=== PATIENT | female | born 1940 | race Caucasian/White ===

== ENCOUNTER → 2018-12-04 | Outpatient (CLI) | payer MEDICARE ==
[~2018-12-04] MED LIST: AMLODIPINE-OLM1 EAC2; AMOCLA875 PO; ANAS1; ASPI81CH PO; ATOR20 PO; Bactrim Ds Tab1 EACH PO; LATA.005SO; LORA1 PO; MUPI2TO TOP; Norco 5-325 Ta1 EACH PO; Prinivil10 MG PO; RANI150; SERT50 PO; TIMO.5OPSO
== END | disposition home or self-care (01) ==
LOC: LAB EV 13:38 → LAB SHORT 13:38
DX: N39.0 Urinary tract infection, site not specified (principal)
CPT/HCPCS: 87077; 87086; 87186

== ENCOUNTER 2021-11-17 09:08 | Day surgery (SDC) | payer MEDICARE ==
[~2021-11-17] VITALS: Ht 170.2 cm; Wt 75.5 kg
== END 2021-11-17 12:09 | disposition home or self-care (01) ==
LOC: ORSCSDS 09:08
PROVIDERS: Internal Medicine Gastroenterology
PROC: 0DBN8ZX Excision of Sigmoid Colon, Via Natural or Artificial Opening Endoscopic, Diagnostic (ICD-10-PCS; principal; 2021-11-17 10:30)
DX: Z12.11 Encounter for screening for malignant neoplasm of colon (principal); Z86.010 Personal history of colon polyps; D12.5 Benign neoplasm of sigmoid colon; K57.30 Diverticulosis of large intestine without perforation or abscess without bleeding; Z79.82 Long term (current) use of aspirin; Z79.899 Other long term (current) drug therapy
CPT/HCPCS: 88305; J2704; J7120

== ENCOUNTER → 2022-03-03 | Outpatient (CLI) | payer MEDICARE | END | disposition home or self-care (01) | LOC: LAB SHORT 17:14 → LAB 17:14 | DX: N39.0 Urinary tract infection, site not specified (principal) | CPT/HCPCS: 87086 ==

== ENCOUNTER → 2022-06-25 | Outpatient (CLI) | payer MEDICARE | END | disposition home or self-care (01) | LOC: LAB SHORT 13:29 → LAB 13:29 | DX: N39.0 Urinary tract infection, site not specified (principal) | CPT/HCPCS: 87077; 87086; 87186 ==

== ENCOUNTER 2024-06-07 19:06 | Emergency (ER) | payer OTHER ==
[~2024-06-07] VITALS: Ht 170.2 cm; Wt 70.3 kg
[2024-06-07 20:18] LABS: BASOPHILS ABSOLUTE AUTO 0.07 K/mm3 (0.00-0.23); BASOPHILS PERCENT AUTO 1 % (0-2); EOSINOPHILS ABSOLUTE AUTO 0.07 K/mm3 (0.00-0.68); EOSINOPHILS PERCENT AUTO 1 % (0-6); Hematocrit 40.8 % (33.0-51.0); Hemoglobin 13.5 g/dL (11.5-16.0); IMMATURE GRAN ABSOLUTE AUTO 0.02 K/mm3 (0.00-0.10); IMMATURE GRAN PERCENT AUTO 0 % (0-1); LYMPHOCYTES ABSOLUTE AUTO 1.66 K/mm3 (0.84-5.20); LYMPHOCYTES PERCENT AUTO 18 % (21-46); MONOCYTES ABSOLUTE AUTO 0.72 K/mm3 (0.16-1.47); MONOCYTES PERCENT AUTO 8 % (4-13); Mean Corpuscular HGB 30.3 pg (26.0-34.0); Mean Corpuscular HGB Conc 33.1 g/dL (31.5-36.5); Mean Corpuscular Volume 92 fL (80-100); Mean Platelet Volume 9.6 fL (9.1-12.4); NEUTROPHILS ABSOLUTE AUTO 6.88 K/mm3 (1.96-9.15); NEUTROPHILS PERCENT AUTO 73 % (41-73); Platelet Count 277 K/mm3 (150-400); RDW Coefficient Variation 13.1 % (11.7-14.2); RDW Standard Deviation 44.8 fL (35.1-46.3); Red Blood Cell Count 4.45 M/mm3 (3.80-5.20); White Blood Cell Count 9.42 K/mm3 (4.00-11.30)
[2024-06-07 20:35] LABS: Albumin/Globulin Ratio 1.1 (0.8-1.8); Bilirubin, Total 0.4 mg/dL (0.1-1.0); Calcium, Blood 9.7 mg/dL (8.5-10.1); Creatinine, Blood 0.92 mg/dL (0.40-1.00); Globulin, Blood 3.5 g/dL (2.2-4.0); Potassium, Blood 4.3 mmol/L (3.5-5.5); Total Protein, Blood 7.5 g/dL (6.4-8.2)
[2024-06-07 21:06] LABS: Source, Urine Clean Catch
[2024-06-07 21:14] LABS: Appearance, Urine Cloudy (Clear); Bilirubin, Urine Neg (Neg); Blood, Urine 5+ (Neg); Color, Urine Brown (P-Yellow); Glucose Qualitative, Urine Neg (Neg); Ketones, Urine Neg (Neg); Leukocyte Esterase, Urine 3+ (Neg); Nitrite, Urine Neg (Neg); Protein, Urine 3+ (Neg); Specific Gravity, Urine 1.015 (1.003-1.022); Urobilinogen, Urine NORM (Normal)
[2024-06-07 21:21] LABS: Bacteria Many /hpf; Granular Casts 0-2 /lpf (0); RBC Cast 0-2 /lpf (0); Red Blood Cells, Urine TNTC /hpf (0-2); Squamous Epithelial Cells Few /hpf (Few)
[2024-06-07 21:45] VITALS: BP 138/73
[2024-06-07] MEDS ORDERED: Macrobid 100 M100 MG PO (21:45)
[2024-06-07] MEDS ORDERED: Nitrofurantoin/Nitrofuran Mac 100 MG Cap PO ONE (21:45)
[2024-06-07] MEDS ORDERED: Pyridium200 MG PO (21:45)
== END 2024-06-07 22:10 | disposition home or self-care (01) ==
LOC: ER 19:06
PROVIDERS: Emergency Medicine
DX: R31.9 Hematuria, unspecified (principal); Z87.19 Personal history of other diseases of the digestive system; Z87.891 Personal history of nicotine dependence; Z79.82 Long term (current) use of aspirin; Z79.899 Other long term (current) drug therapy; Z88.5 Allergy status to narcotic agent
CPT/HCPCS: 80053; 81001; 85025; 87086; 99284; A9270; P9612

== ENCOUNTER → 2024-06-14 | Outpatient (CLI) | payer OTHER ==
[~2024-06-14] MED LIST changes: +Macrobid 100 M100 MG PO; +Pyridium200 MG PO
[2024-06-14 15:33] LABS: Source, Urine Voided
[2024-06-14 17:31] LABS: Appearance, Urine Clear (Clear); Bilirubin, Urine Neg (Neg); Blood, Urine Neg (Neg); Color, Urine Yellow (P-Yellow); Glucose Qualitative, Urine Neg (Neg); Ketones, Urine Neg (Neg); Leukocyte Esterase, Urine Neg (Neg); Nitrite, Urine Neg (Neg); Protein, Urine Neg (Neg); Urobilinogen, Urine NORM (Normal)
== END ==
LOC: LAB SHORT 15:31 → LAB 15:31
PROVIDERS: Obstetrics & Gynecology
DX: R31.9 Hematuria, unspecified (principal)
CPT/HCPCS: 81003

== ENCOUNTER 2025-04-19 13:26 | Inpatient (IN) | payer OTHER ==
[~2025-04-19] VITALS: Ht 170.2 cm; Wt 73.9 kg
[~2025-04-19 13:26] MED LIST changes: -AMLODIPINE-OLM1 EAC2; +AMLODIPINE-OLM1 EAC2 PO; -LATA.005SO; +LATA.005SO BOTHEYES
[2025-04-19 13:52] LABS: BASOPHILS ABSOLUTE AUTO 0.01 K/mm3 (0.00-0.23); BASOPHILS PERCENT AUTO 0 % (0-2); EOSINOPHILS ABSOLUTE AUTO 0.00 K/mm3 (0.00-0.68); EOSINOPHILS PERCENT AUTO 0 % (0-6); Hematocrit 35.9 % (33.0-51.0); Hemoglobin 11.8 g/dL (11.5-16.0); IMMATURE GRAN ABSOLUTE AUTO 0.00 K/mm3 (0.00-0.10); IMMATURE GRAN PERCENT AUTO 0 % (0-1); LYMPHOCYTES ABSOLUTE AUTO 0.48 K/mm3 (0.84-5.20); LYMPHOCYTES PERCENT AUTO 11 % (21-46); MONOCYTES ABSOLUTE AUTO 0.02 K/mm3 (0.16-1.47); MONOCYTES PERCENT AUTO 0 % (4-13); Mean Corpuscular HGB Conc 32.9 g/dL (31.5-36.5); Mean Corpuscular Volume 93 fL (80-100); NEUTROPHILS ABSOLUTE AUTO 3.99 K/mm3 (1.96-9.15); NEUTROPHILS PERCENT AUTO 89 % (41-73); NRBC ABSOLUTE 0.00 K/mm3 (0.00-0.02); NRBC Auto 0.0 /100 WBC (0.0-0.2); Platelet Count 168 K/mm3 (150-400); RDW Coefficient Variation 13.2 % (11.7-14.2); RDW Standard Deviation 44.2 fL (35.1-46.3)
[2025-04-19] MEDS ORDERED: NS 1,000 ML IV SCH (14:10)
[2025-04-19 14:40] LABS: Alanine Aminotransfer (ALT/SGP 31.0 U/L (12-78); Albumin, Blood 3.0 g/dL (3.4-5.0); Albumin/Globulin Ratio 0.8 (0.8-1.8); Anion Gap 14.0 mmol/L (3-11); Aspartate Aminotrans (AST/SGOT 42.0 U/L (12-37); Bilirubin, Total 1.4 mg/dL (0.1-1.0); Blood Urea Nitrogen 19.0 mg/dL (8-24); CO2, Blood 23.0 mmol/L (21-32); Calcium, Blood 8.8 mg/dL (8.5-10.1); Chloride, Blood 101.0 mmol/L (98-108); Creatinine, Blood 1.01 mg/dL (0.40-1.00); Globulin, Blood 3.9 g/dL (2.2-4.0); Glucose, Blood 129.0 mg/dL (70-99); Potassium, Blood 3.6 mmol/L (3.5-5.5); Sodium, Blood 134.0 mmol/L (136-145); Total Protein, Blood 6.9 g/dL (6.4-8.2)
[2025-04-19 15:14] LABS: Prothrombin Time Results 11.6 Sec (9.7-11.5)
[2025-04-19 15:23] LABS: Magnesium, Blood 1.6 mg/dL (1.6-2.4); Phosphorus, Blood 2.5 mg/dL (2.5-4.9)
[2025-04-19 15:35] LABS: Source, Urine Clean Catch
[2025-04-19] MEDS ORDERED: Ketorolac Tromethamine 30mg Vial IV ONE (15:35)
[2025-04-19 15:44] LABS: Bilirubin, Urine Neg (Neg); Color, Urine Yellow (P-Yellow); Glucose Qualitative, Urine Neg (Neg); Ketones, Urine 1+ (Neg); Leukocyte Esterase, Urine 3+ (Neg); Protein, Urine 3+ (Neg); Specific Gravity, Urine 1.005 (1.003-1.022); Urobilinogen, Urine NORM (Normal)
[2025-04-19 15:54] LABS: White Blood Cells, Urine 25-50 /hpf (0-5)
[2025-04-19] MEDS ORDERED: CefTRIAXone Sodium 1,000 MG in NS 100 ML IV ONE (16:00)
[2025-04-19] MEDS ORDERED: Ondansetron HCl 2 MG / ML 2ML Vial IV PRN (16:25)
[2025-04-19] MEDS ORDERED: Ketorolac Tromethamine 15mg Vial IV PRN (16:30)
[2025-04-19 16:39] LABS: Influenza A, PCR NEGATIVE (NEGATIVE); Influenza B, PCR NEGATIVE (NEGATIVE); Resp Syncytial Virus, PCR NEGATIVE (NEGATIVE); SARS-Cov-2 (COVID-19) PCR, MMC NEGATIVE (NEGATIVE)
[2025-04-19 18:11] VITALS: BP 105/54
[2025-04-19] MEDS ORDERED: TIMDOROPSO BOTHEYES (18:30)
[2025-04-19] MEDS ORDERED: Alphagan P5 ML BOTHEYES (18:33)
[2025-04-19] MEDS ORDERED: VIT D3-VIT K21 EACH PO (18:36)
[2025-04-19] MEDS ORDERED: MULTI-VITAMIN1 EAC2 PO (18:37)
--- NOTE | 2025-04-19 19:08 | NUR ---
ADMISSION FROM ER AT 1805HRS. NO PAIN ON ADMISSION. SHE SAID SHE FEELS A LOT BETTER THAN EARLIER IN THE DAY. TELE PLACED, SR 80S. AMBULATED TO BR WITH 1 ASSIST, A LITTLE WOBBLY WALKING. ADMISSION STARTED. TO CT FOR ABDOMINAL CT. PLACED ON PRECAUTIONARY ISOLATION WHILE WAITING FOR STOOL SAMPLE. MS STERLING VOICED UNDERSTANDING OF FALL PRECAUTIONS AND AGREED TO GET ASSISTANCE BEFORE GETTING UP TO THE BATHROOM. REPORT TO ONCOMING RN.
[2025-04-19] MEDS ORDERED: Lactobacil 2-S.Thermo-Bifido 1 1 Cap PO SCH (21:00)
[2025-04-19 23:36] VITALS: BP 108/56
[2025-04-20 03:30] VITALS: BP 125/59
--- NOTE | 2025-04-20 05:06 | NUR ---
SHIFT SUMMARY PT SLEPT INTERMITTENTLY DURING THE NIGHT. PT WITH 1 EPISODE OF CHILLS AND BODY ACHES- NO FEVER DETECTED- MEDICATED WITH TYLENOL PER EMAR. BLOOD CULTURE RESULT, 1 BOTTLE POSITIVE FOR GRAM NEGATIVE BACILLI. PHARMACY AND DR SALINAS NOTIFIED, NO NEW ORDERS- SEE DOCUMENTATION. PT OOB TO BATHROOM WITH SBA. PT WITH A SMEAR OF STOOL ON INCONT PAD, BUT NOT ENOUGH TO SEND TO LAB. PT WITH 1 SMALL EPISODE OF EMESIS. PT CURRENTLY DENIES PAIN, CHILLS, NAUSEA, OR VOMITTING.
[2025-04-20 05:44] LABS: BASOPHILS ABSOLUTE AUTO 0.05 K/mm3 (0.00-0.23); BASOPHILS PERCENT AUTO 0 % (0-2); EOSINOPHILS ABSOLUTE AUTO 0.01 K/mm3 (0.00-0.68); EOSINOPHILS PERCENT AUTO 0 % (0-6); Hematocrit 30.2 % (33.0-51.0); Hemoglobin 10.3 g/dL (11.5-16.0); IMMATURE GRAN ABSOLUTE AUTO 0.11 K/mm3 (0.00-0.10); IMMATURE GRAN PERCENT AUTO 1 % (0-1); LYMPHOCYTES ABSOLUTE AUTO 0.87 K/mm3 (0.84-5.20); LYMPHOCYTES PERCENT AUTO 6 % (21-46); MONOCYTES ABSOLUTE AUTO 0.92 K/mm3 (0.16-1.47); MONOCYTES PERCENT AUTO 6 % (4-13); Mean Corpuscular HGB Conc 34.1 g/dL (31.5-36.5); Mean Corpuscular Volume 91 fL (80-100); NEUTROPHILS ABSOLUTE AUTO 13.03 K/mm3 (1.96-9.15); NEUTROPHILS PERCENT AUTO 87 % (41-73); NRBC ABSOLUTE 0.00 K/mm3 (0.00-0.02); NRBC Auto 0.0 /100 WBC (0.0-0.2); Platelet Count 161 K/mm3 (150-400); RDW Coefficient Variation 13.4 % (11.7-14.2); RDW Standard Deviation 45.5 fL (35.1-46.3)
[2025-04-20 06:17] LABS: Anion Gap 10.0 mmol/L (3-11); Blood Urea Nitrogen 19.0 mg/dL (8-24); CO2, Blood 25.0 mmol/L (21-32); Calcium, Blood 8.0 mg/dL (8.5-10.1); Chloride, Blood 103.0 mmol/L (98-108); Creatinine, Blood 1.1 mg/dL (0.40-1.00); Glucose, Blood 118.0 mg/dL (70-99); Potassium, Blood 3.5 mmol/L (3.5-5.5); Sodium, Blood 134.0 mmol/L (136-145)
[2025-04-20 08:02] VITALS: BP 115/53
[2025-04-20] MEDS ORDERED: Enoxaparin 40 MG/0.4 ML SYR SC SCH (09:00)
[2025-04-20 11:08] VITALS: BP 127/64
[2025-04-20] MEDS ORDERED: NS 250 ML IV PRN (11:10)
[2025-04-20] MEDS ORDERED: CefTRIAXone Sodium 1,000 MG in NS 100 ML IV SCH (12:00)
[2025-04-20] MEDS ORDERED: Brimonidine Tartrate 0.2% Opth 5 ml BOTHEYES SCH (14:00)
[2025-04-20 15:10] VITALS: BP 113/62
--- NOTE | 2025-04-20 16:28 | NUR ---
SHIFT SUMMARY: PATIENT MEDICATED FOR GENERALIZED BODY ACHES PER EMAR c GOOD EFFECT. PATIENT HAS HAD NO FEVER THIS SHIFT, DENIES CP, N/V AND DIZZINESS. PATIENT ON TELE, SR HR IN THE 80'S BPM. PATIENT REPORTS NO APPETITE, CONTIN/INCON OF BLADDER, ATTENDS IN PLACED AND AMBULATES TO BATHROOM/BACK IN BED c SBA/FWW. PATIENT HAS POSITIVE BLOOD CX-GRAM NEGATIVE BACILLI, DR. QUINTERO IS AWARE AND CHANGED IV ABX TO [place]OPEN[place] AND RECEIVED THE DOSE THIS AFTERNOON. PATIENT RESTING IN BED ON/OFF T/O SHIFT. BED ALARM ON FOR SAFETY. CALL LIGHT IN REACH.
--- NOTE | 2025-04-20 16:39 | NUR ---
AM SHIFT ADDITIONAL NOTE: PATIENT ECHO WAS DONE TODAY, AWAITING FOR RESULT.
[2025-04-20 20:00] VITALS: BP 131/64
[2025-04-20] MEDS ORDERED: Latanoprost 0.005% Opth Soln 2.5 ML BOTHEYES SCH (21:00)
[2025-04-20] MEDS ORDERED: Dorzolamide/Timolol Opth Soln 10 ML BOTHEYES SCH (21:00)
[2025-04-21 00:20] VITALS: BP 132/75
--- NOTE | 2025-04-21 03:30 | NUR ---
SHIFT SUMMARY: PT AOX4 AND PLEASENT AND COOPERATIVE WITH CARE. PT SBA WITH FWW TO BTHROOM. PT VOIDING WELL THROUGH OUT SHIFT. NO ACUTE CHANGES.
[2025-04-21 04:07] VITALS: BP 138/66
[2025-04-21 05:50] LABS: BASOPHILS ABSOLUTE AUTO 0.05 K/mm3 (0.00-0.23); BASOPHILS PERCENT AUTO 1 % (0-2); EOSINOPHILS ABSOLUTE AUTO 0.04 K/mm3 (0.00-0.68); EOSINOPHILS PERCENT AUTO 0 % (0-6); Hematocrit 31.2 % (33.0-51.0); Hemoglobin 10.3 g/dL (11.5-16.0); IMMATURE GRAN ABSOLUTE AUTO 0.04 K/mm3 (0.00-0.10); IMMATURE GRAN PERCENT AUTO 0 % (0-1); LYMPHOCYTES ABSOLUTE AUTO 1.16 K/mm3 (0.84-5.20); LYMPHOCYTES PERCENT AUTO 12 % (21-46); MONOCYTES ABSOLUTE AUTO 0.88 K/mm3 (0.16-1.47); MONOCYTES PERCENT AUTO 9 % (4-13); Mean Corpuscular HGB Conc 33.0 g/dL (31.5-36.5); Mean Corpuscular Volume 93 fL (80-100); NEUTROPHILS ABSOLUTE AUTO 7.57 K/mm3 (1.96-9.15); NEUTROPHILS PERCENT AUTO 78 % (41-73); NRBC ABSOLUTE 0.00 K/mm3 (0.00-0.02); NRBC Auto 0.0 /100 WBC (0.0-0.2); Platelet Count 173 K/mm3 (150-400); RDW Coefficient Variation 13.3 % (11.7-14.2); RDW Standard Deviation 45.1 fL (35.1-46.3)
[2025-04-21 06:12] LABS: Anion Gap 9.0 mmol/L (3-11); Blood Urea Nitrogen 14.0 mg/dL (8-24); CO2, Blood 26.0 mmol/L (21-32); Calcium, Blood 8.2 mg/dL (8.5-10.1); Chloride, Blood 106.0 mmol/L (98-108); Creatinine, Blood 0.99 mg/dL (0.40-1.00); Glucose, Blood 96.0 mg/dL (70-99); Potassium, Blood 3.5 mmol/L (3.5-5.5); Sodium, Blood 137.0 mmol/L (136-145)
[2025-04-21 07:18] VITALS: BP 146/72
[2025-04-21] MEDS ORDERED: Cholecalciferol 1000 Unit Tablet (=25MCG) PO SCH (09:00)
[2025-04-21] MEDS ORDERED: Multivitamins 1 Tab PO SCH (09:00)
[2025-04-21] MEDS ORDERED: LISI20 PO (11:13)
[2025-04-21] MEDS ORDERED: AMLODIPINE BESYL5 MG PO (11:13)
[2025-04-21 12:19] VITALS: BP 134/76
[2025-04-21] MEDS ORDERED: LevoFLOXacin 750 MG/D5W 150ML 150 ML IV SCH (14:00)
[2025-04-21 19:24] VITALS: BP 141/82
[2025-04-21 23:53] VITALS: BP 125/67
[2025-04-22 03:08] VITALS: BP 128/65
--- NOTE | 2025-04-22 04:20 | NUR ---
SHIFT SUMMARY PT ALERT ORIENTED X 4 ABLE TO VERBALIZE NEEDS GETS UP TO BATHROOM AD SARATH USING WALKER. REMAINS ON LEVAQUIN ORDERED FOR UTI AND SEPSIS. SHE HAD A UROLOGY CONSULT ORDERED BUT THERES NOT ONE HERE AT THIS TIME SO SHE WILL SEE ONE ON OUT PATIENT. SHE HAD A ECHO DONE WHICH SHOWED 60-65%. SHE HAD A SLIGHT TEMP OF 99.4 BUT NO OTHER TEMP. ALL OTHER VSS. REMAINS ON RA SATTING AT 94-96%. C/O GENERAL PAIN MEDICATED WITH TYLENOL WITH GOOD RELIEF. REMAINS ON TELEMETRY AT SIN[facility] JOSE LUIS AT 59. SHES RESTING IN BED AT THIS TIME WITH CALL LIGHT IN REACH
[2025-04-22 05:59] LABS: BASOPHILS ABSOLUTE AUTO 0.02 K/mm3 (0.00-0.23); BASOPHILS PERCENT AUTO 0 % (0-2); EOSINOPHILS ABSOLUTE AUTO 0.06 K/mm3 (0.00-0.68); EOSINOPHILS PERCENT AUTO 1 % (0-6); Hematocrit 31.9 % (33.0-51.0); Hemoglobin 10.4 g/dL (11.5-16.0); IMMATURE GRAN ABSOLUTE AUTO 0.02 K/mm3 (0.00-0.10); IMMATURE GRAN PERCENT AUTO 0 % (0-1); LYMPHOCYTES ABSOLUTE AUTO 1.09 K/mm3 (0.84-5.20); LYMPHOCYTES PERCENT AUTO 21 % (21-46); MONOCYTES ABSOLUTE AUTO 0.68 K/mm3 (0.16-1.47); MONOCYTES PERCENT AUTO 13 % (4-13); Mean Corpuscular HGB Conc 32.6 g/dL (31.5-36.5); Mean Corpuscular Volume 93 fL (80-100); NEUTROPHILS ABSOLUTE AUTO 3.42 K/mm3 (1.96-9.15); NEUTROPHILS PERCENT AUTO 65 % (41-73); NRBC ABSOLUTE 0.00 K/mm3 (0.00-0.02); NRBC Auto 0.0 /100 WBC (0.0-0.2); Platelet Count 172 K/mm3 (150-400); RDW Coefficient Variation 13.2 % (11.7-14.2); RDW Standard Deviation 45.2 fL (35.1-46.3)
[2025-04-22 06:49] LABS: Anion Gap 7.0 mmol/L (3-11); Blood Urea Nitrogen 14.0 mg/dL (8-24); CO2, Blood 28.0 mmol/L (21-32); Calcium, Blood 8.4 mg/dL (8.5-10.1); Chloride, Blood 107.0 mmol/L (98-108); Creatinine, Blood 1.03 mg/dL (0.40-1.00); Glucose, Blood 102.0 mg/dL (70-99); Potassium, Blood 3.8 mmol/L (3.5-5.5); Sodium, Blood 138.0 mmol/L (136-145)
[2025-04-22 07:12] VITALS: BP 162/81
[2025-04-22] MEDS ORDERED: LEVO750 PO (09:51)
[2025-04-22] MEDS ORDERED: VISBIOME 112.51 EACH PO (09:51)
--- NOTE | 2025-04-22 10:54 | NUR ---
Patient voiced understanding of discharge instructions. patient able to walk independent in room. dipper fish with patient in wc to exit, family waiting .
== END 2025-04-22 10:47 | disposition home or self-care (01) | DRG 872 ==
LOC: ER 13:26 → MEDS 16:17
PROVIDERS: Internal Medicine; Student in an Organized Health Care Education/Training Program; ADMIT Family Medicine
DX: A41.51 Sepsis due to Escherichia coli [E. coli] (principal); E87.1 Hypo-osmolality and hyponatremia; N12 Tubulo-interstitial nephritis, not specified as acute or chronic; E78.5 Hyperlipidemia, unspecified; K21.9 Gastro-esophageal reflux disease without esophagitis; I12.9 Hypertensive chronic kidney disease with stage 1 through stage 4 chronic kidney disease, or unspecified chronic kidney disease; N18.30 Chronic kidney disease, stage 3 unspecified; D63.1 Anemia in chronic kidney disease; Z87.891 Personal history of nicotine dependence; Z90.12 Acquired absence of left breast and nipple; Z85.3 Personal history of malignant neoplasm of breast; Z90.710 Acquired absence of both cervix and uterus; Z90.49 Acquired absence of other specified parts of digestive tract; Z88.5 Allergy status to narcotic agent; Z79.82 Long term (current) use of aspirin; Z79.899 Other long term (current) drug therapy
CPT/HCPCS: 36415; 74177; 80048; 80053; 81001; 83605; 83690; 83735; 84100; 85025; 85610; 85730; 87040; 87077; 87086; 87186; 87637; 93005; 93010; 93306; 96361; 96374-59; 99285-25; A9270; J0696; J1650; J1885; J1956; J2185; J2405; J7030; J7050; J7120; P9612; Q9967

== ENCOUNTER 2025-05-06 20:20 | Emergency (ER) | payer OTHER ==
[~2025-05-06] VITALS: Ht 170.2 cm; Wt 71.2 kg
[~2025-05-06 20:20] MED LIST changes: +AMLODIPINE BESYL5 MG PO; +Alphagan P5 ML BOTHEYES; +LEVO750 PO; +LISI20 PO; +MULTI-VITAMIN1 EAC2 PO; +TIMDOROPSO BOTHEYES; +VISBIOME 112.51 EACH PO; +VIT D3-VIT K21 EACH PO
[2025-05-06] MEDS ORDERED: Ketorolac Tromethamine 30mg Vial IM ONE (20:45)
[2025-05-06 23:14] VITALS: BP 146/74
== END 2025-05-06 23:30 | disposition home or self-care (01) ==
LOC: ER 20:20
DX: S09.90XA Unspecified injury of head, initial encounter (principal); S49.91XA Unspecified injury of right shoulder and upper arm, initial encounter; W10.8XXA Fall (on) (from) other stairs and steps, initial encounter; Z79.899 Other long term (current) drug therapy; Z87.891 Personal history of nicotine dependence
CPT/HCPCS: 70450; 71046; 99284-25; A9270

== ENCOUNTER 2025-08-26 08:58 | Day surgery (SDC) | payer OTHER ==
[~2025-08-26] VITALS: Ht 170.2 cm; Wt 73.0 kg
[~2025-08-26 08:58] MED LIST changes: +Balanced Salt Epinephrine Irrigation Solution 500 mL IR SCH; +Moxifloxacin HCL 0.5 MG/0.1 ML 0.4MLSYR RIGHTEYE SCH; +NS 500 ML IV ONE; +PHENYLEPHRINE\\TROPICAMIDE\\TETRACAINE OPHTHALMIC DILATING SOLN RIGHTEYE PRN; +Povidone-Iodine 450 DROP/30 ML Solution ONE; +Povidone-Iodine 450 DROP/30 ML Solution RIGHTEYE SCH; +Tetracaine HCl/Pf 0.5% Opth Soln 4 ml ONE
[2025-08-26] MEDS ORDERED: NS 500 ML IV ONE ×2 (09:53)
--- NOTE | 2025-08-26 09:54 | NUR ---
08/26/25 0954 Dong Ellis CALL LIGHT WITHIN REACH. EYE DROPS IN 0946.
[2025-08-26] MEDS ORDERED: Midazolam HCl 1MG / ML 2ML Vial ONE (10:25)
[2025-08-26] MEDS ORDERED: Tetracaine HCl 0.5% Opth Soln 15 ml RIGHTEYE ONE (10:26)
[2025-08-26] MEDS ORDERED: FentaNYL Citrate 50 MCG/ML 2 ML Injection ONE (10:47)
[2025-08-26 11:27] VITALS: BP 134/78
== END 2025-08-26 11:18 | disposition home or self-care (01) ==
LOC: ORSCSDS 08:58
PROVIDERS: Student in an Organized Health Care Education/Training Program
PROC: 08923ZZ Drainage of Right Anterior Chamber, Percutaneous Approach (ICD-10-PCS; principal; 2025-08-26 10:30)
PROC: 08RJ3JZ Replacement of Right Lens with Synthetic Substitute, Percutaneous Approach (ICD-10-PCS; principal; 2025-08-26 10:30)
DX: H25.813 Combined forms of age-related cataract, bilateral (principal); H40.1212 Low-tension glaucoma, right eye, moderate stage; I10 Essential (primary) hypertension; E78.5 Hyperlipidemia, unspecified; K21.9 Gastro-esophageal reflux disease without esophagitis; Z79.899 Other long term (current) drug therapy; Z87.891 Personal history of nicotine dependence
CPT/HCPCS: J2250; J3010; J7040; V2632

== ENCOUNTER 2025-09-02 08:25 | Day surgery (SDC) | payer OTHER ==
[~2025-09-02] VITALS: Ht 170.2 cm; Wt 73.6 kg
[2025-09-02] MEDS ORDERED: Midazolam HCl 1MG / ML 2ML Vial ONE (09:11)
[2025-09-02] MEDS ORDERED: NS 500 ML IV ONE (09:22)
[2025-09-02] MEDS ORDERED: FentaNYL Citrate 50 MCG/ML 2 ML Injection ONE (09:43)
--- NOTE | 2025-09-02 09:56 | NUR ---
09/02/[address] IN WITH PT
[2025-09-02 09:57] VITALS: BP 131/70
== END 2025-09-02 10:14 | disposition home or self-care (01) ==
LOC: ORSCSDS 08:25
PROVIDERS: Student in an Organized Health Care Education/Training Program
PROC: 08RK3JZ Replacement of Left Lens with Synthetic Substitute, Percutaneous Approach (ICD-10-PCS; principal; 2025-09-02 10:00)
PROC: 08933ZZ Drainage of Left Anterior Chamber, Percutaneous Approach (ICD-10-PCS; principal; 2025-09-02 10:00)
DX: H25.12 Age-related nuclear cataract, left eye (principal); H40.122 Low-tension glaucoma, left eye; H18.519 Endothelial corneal dystrophy, unspecified eye; Z96.1 Presence of intraocular lens; Z87.891 Personal history of nicotine dependence; E78.5 Hyperlipidemia, unspecified; I10 Essential (primary) hypertension; K21.9 Gastro-esophageal reflux disease without esophagitis; Z79.899 Other long term (current) drug therapy
CPT/HCPCS: J2250; J3010; J7040; V2632